=== PATIENT | female | born 1950 | race Caucasian/White ===

== ENCOUNTER → 2017-06-09 | Outpatient (CLI) | payer OTHER ==
[~2017-06-09] MED LIST: CALCAVITD; CHOL10002; GLUCOSAMINE1000 MG; MAGNESIUM; PROBIOTIC1 EAC1; PSYL5.85P PO; SILYMARIN
== END | disposition home or self-care (01) ==
LOC: LAB EV 16:43
DX: N30.01 Acute cystitis with hematuria (principal)
CPT/HCPCS: 87077; 87086; 87186

== ENCOUNTER → 2017-06-24 | Outpatient (CLI) | payer OTHER | LOC: LAB SHORT 18:23 → LAB EV 18:23 | DX: N39.0 Urinary tract infection, site not specified (principal) | CPT/HCPCS: 87086 ==

== ENCOUNTER → 2019-02-10 | Outpatient (CLI) | payer OTHER | END | disposition home or self-care (01) | LOC: LAB 14:43 → LAB SHORT 14:43 | PROVIDERS: Nurse Practitioner | DX: Z01.419 Encounter for gynecological examination (general) (routine) without abnormal findings (principal) | CPT/HCPCS: G0145 ==

== ENCOUNTER → 2020-01-26 | Outpatient (CLI) | payer OTHER | END | disposition home or self-care (01) | LOC: LAB SHORT 11:08 → PLD 11:08 | DX: L82.1 Other seborrheic keratosis (principal) | CPT/HCPCS: 88305 ==